=== PATIENT | female | born 1925 | race Caucasian/White ===

== ENCOUNTER 2017-07-08 22:19 | Observation (INO) | payer MEDICARE ==
[2017-07-08 23:30] LABS: Hemoglobin 13.4 g/dL (12.0-16.0); Mean Corpuscular HGB CONC 32.4 g/dL (32.0-36.0); Mean Corpuscular Hemoglobin 30.3 pg (27.0-31.0); Mean Corpuscular Volume 93.7 fl (81.0-99.0); Mean Platelet Volume 7.4 fL (7.4-10.4); Platelet Count 211 thou/uL (130-400); RBC Distribution Width 12.6 % (11.5-14.5); Red Blood Cell (RBC) Count 4.41 mill/uL (4.20-5.40); White Blood Cell (WBC) Count 4.7 thou/uL (4.8-10.8)
[2017-07-08 23:34] LABS: Band 18 % (5-11); Lymphocytes 21 % (21-51); MDiff Complete? YES; Monocytes 12 % (0-10); Neutrophil 48 % (42-75)
[2017-07-08 23:37] LABS: CKMB 2.8 ng/mL (0-6.6)
[2017-07-08 23:45] LABS: Troponin I Less than 0.010 ng/mL (< 0.028)
[2017-07-09 02:40] LABS: Troponin I Less than 0.010 ng/mL (< 0.028)
[2017-07-09 03:13] VITALS: BMI 29.9
[2017-07-09] MEDS ORDERED: Aspirin 325 MG TAB PO SCH (08:00)
[2017-07-09] MEDS ORDERED: Ondansetron ODT 4 MG TAB PO PRN (08:12)
[2017-07-09] MEDS ORDERED: Acetaminophen 325 MG TAB PO PRN (08:12)
[2017-07-09] MEDS ORDERED: HYDROcodone/Acetaminophen 5/325 mg Tablet PO PRN (08:12)
[2017-07-09] MEDS ORDERED: Enoxaparin Sodium 40 MG/0.4 ML SYRINGE SC SCH (08:30)
[2017-07-09] MEDS ORDERED: Amlodipine 5 MG TAB PO SCH (09:00)
[2017-07-09] MEDS ORDERED: clonazePAM 0.5 MG TAB PO SCH (09:00)
[2017-07-09] MEDS ORDERED: Fluticasone Propionate Nasal Spray 16 gm Bottle NASAL SCH (09:00)
[2017-07-09] MEDS ORDERED: Escitalopram Oxalate 10 mg Tablet PO SCH (09:00)
[2017-07-09] MEDS ORDERED: Hydrochlorothiazide 25 MG TAB PO SCH (09:00)
--- NOTE | 2017-07-09 11:13 | ULT ---
CAROTID ARTERIAL DOPPLER ULTRASOUND: DATE: 07/09/17 COMPARISON: None. HISTORY: Crescendo transient ischemic attack. TECHNIQUE: Multiplanar Prater scale sonographic imaging of the arterial structures of the neck obtained with color flow/spectral analysis. FINDINGS: There is antegrade blood flow and normal arterial waveforms documented within the right carotid syste m. Right vertebral artery could not be visualized. Left vertebral artery could not be visualized. Proximal left common carotid artery could not be visua lized. VESSEL PSV (cm/sec) EDV (cm/sec) Right CCA 113 13 Right ICA 77 12 Right ECA 189 9 Left CCA 75 10 Left ICA 71 9 Left ECA 228 6 IMPRESSION: 1. No hemodynamically significant stenosis on the basis of sonographic velocity criteria. However, p ortions of the left common carotid artery proximally could not be visualized. 2. Neither vertebral artery could be visualized and thus either vertebral artery may be occluded. 3. Given the limitations of this examination, cross-sectional imaging of the arterial structures of the neck via MRA with and without contrast advised. TERRELL T. POS: [facility]
--- NOTE | 2017-07-09 11:48 | MRI ---
BRAIN MRI WITHOUT CONTRAST: Date: 07/09/17 COMPARISON: None. HISTORY: Crescendo transient ischemic attacks. TECHNIQUE: Multiplanar, multisequence MR imaging of brain provided without contrast. FINDINGS: The diffusion-weighted imaging demonstrates no evidence for acute infarction. The axial gradient echo imaging demonstrates no evidence for intracranial hemorrhage. There is moderate diffuse cerebral volume loss. There are numerous foci of increased T2 and FLAIR sig nal within the periventricular, deep, and subcortical white matter, evidence of small vessel disease. Nonspecific bilateral mastoid effusions are noted, right more prominent than the left. Material of h igh density on FLAIR imaging within the right mastoid air cells suggest material of high proteinaceou s content, which could represent chronic/inspissated secretions, or an inflammatory process. There is near complete opacification of the maxillary sinus on the right. Arterial flow-void at axial level of skull base appears grossly unremarkable. IMPRESSION: Bilateral mastoid effusions. Cerebral volume loss and small vessel disease. No evidence of acute infa rction. POS: [facility]
--- NOTE | 2017-07-09 11:59 | MRI ---
MR ANGIOGRAM OF THE HEAD: Date: 07/09/17 COMPARISON: None. HISTORY: Crescendo transient ischemic attack. TECHNIQUE: Routine noncontrast enhanced [id number] MR angiography of the brain is obtained. FINDINGS: The distal vertebral arteries are patent, demonstrating antegrade blood flow. Right vertebral artery is dominant. There is mild stenosis of the basilar artery at its origin and there is mild stenosis in volving the distal aspect of the left vertebral artery. There is mild stenosis at the origin of the left [employer]. There is a severe area of stenosis involving th e distal aspect of the right P1 segment. There is mild distal irregularity of the left [employer]ER. There is an area of moderate stenosis involving the proximal aspect of the left cavernous ICA. Bilateral A1 segments are patent. Bilateral HILARY branches appear unremarkable. There is a focal area of severe stenosis involving the proximal right M1 segment measuring a length o f 5-6 mm. There is moderate/severe stenosis involving the proximal aspect of multiple M2 branches. The M1 segment on the left is severely diseased with numerous focal areas of high grade stenosis appr oaching occlusion. The MCA branches distal to this, including all M2 and M3 branches are severely attenuated. No saccula r aneurysm. IMPRESSION: There is severe atherosclerotic disease involving the M1 segments bilaterally, left greater than righ t. The MCA branches on the left are severely attenuated throughout the left cerebral hemisphere. Ther e is disease involving the posterior circulation as well, primarily bilateral posterior cerebral jacqui yane, right breast than left. POS: [facility]
--- NOTE | 2017-07-09 13:05 | HP ---
PRIMARY CARE PHYSICIAN: Dr. Jacob Gutierrez TIME OF SERVICE: 0800. CHIEF COMPLAINT: Slurred speech. HISTORY OF PRESENT ILLNESS: Ms. Sol is an 89-year-old female with history of hypothyroidism, GERD , valvular heart disease, hyperlipidemia, and hypertension who presents to an outside Emergency Depar tment initially in the evening of 07/08/2017 for an episode of slurred speech and some motor deficits . This latest episode occurred about 45 minutes prior to her arrival in the emergency department. She has had 3 other episodes in the last 10-14 days. By the time of transfer to our facility everything had returned to normal. Per the reports she has had some speech dysarthria slurring, but denied any motor deficits or sensory deficits. No double vision. No change in her hearing, vision, taste or smell otherwise. She denied any headache. She had no nausea, vomiting, diarrhea, constipation, fevers or chills, otherwise. PAST MEDICAL HISTORY: 1. Hypothyroidism. 2. GERD. 3. Valvular heart disease, unknown. 4. Hyperlipidemia. Primary cholesterol. 5. Hypertension. 6. Depression. 7. Anxiety. 8. Panic attacks. PAST SURGICAL HISTORY: 1. An ear surgery remotely. 2. Hysterectomy. 3. Esophageal stricture with dilation. HOME MEDICATIONS: 1. Losartan 50 mg p.o. q.a.m. 2. HCTZ 25 mg p.o. q.a.m. 3. Myrbetriq 25 mg daily. 4. Escitalopram 10 mg daily. 5. Pravastatin 20 mg p.o. at bedtime. 6. Lorazepam 0.5 mg p.o. at bedtime. 7. Aspirin 81 mg daily. 8. CoQ10 200 mg daily. 9. Levothyroxine 50 mcg daily. 10. Prilosec OTC 20 mg daily. 11. Flonase 2 puffs each nostril daily. 12. Ropinirole 2 mg p.o. at bedtime. ALLERGIES: CODEINE, ERYTHROMYCIN, KETAMINE, MACROLIDES, DEMEROL, MORPHINE and DARVON. FAMILY HISTORY: Negative for clotting or bleeding disorder, no immune dysfunction. SOCIAL HISTORY: Negative for habits x3. REVIEW OF SYSTEMS: A 10-point review of systems was performed and negative for all other systems exc ept stated as per HPI. PHYSICAL EXAMINATION: VITAL SIGNS: Temperature 98.2, pulse 74, blood pressure 144/65, respiratory rate 18, satting 94% on room air. GENERAL: She is awake. She is alert, she is oriented x3. She is an elderly white female, appears t o be in no acute distress. HEENT: Head is normocephalic, atraumatic. Pupils equal and reactive to light bilaterally, mucous me mbrane moist. She has no visible lesions or thrush. NECK: Supple. There is no lymphadenopathy, JVD or thyromegaly. She has normal carotid upstrokes. I do not appreciate bruits. LUNGS: Clear. CARDIOVASCULAR: She has normal S1 and S2. She has a holosystolic murmur best heard over the apex. She has no rubs. ABDOMEN: Soft, it is nontender, nondistended, no masses or organomegaly. EXTREMITIES: No cyanosis, no clubbing, no edema. She has 1+ at dorsalis pedis and posterior tibial pulses. SKIN: Otherwise, warm and well perfused without any other rash or lesions. NEUROLOGIC: Cranial nerves II-XII are grossly intact. She has a good conjugate gaze. Normal speech pattern. She has no focal deficits. She has 5/5 strength in all 4 of her extremities. MUSCULOSKELETAL: Normal to inspection, no joint inflammation and no effusions. LABORATORY DATA: Sodium 136, potassium 3.8 chloride 101, bicarbonate 22, BUN 21, creatinine 1.01, gl ucose 119, and magnesium 2.1. Calcium was 9.2. Liver functions normal. CBC showed a white count of 4.7, hemoglobin 13.4, hematocrit 41.3, platelets are normal. She has a 40% granulocytes, 18% bands, and 21% lymphocytes. Chest x-rays or CT scan of the brain negative for acute intracranial abnormalities. ASSESSMENT AND PLAN: 1. Dysarthria, seems to have resolved. This certainly could be a transient ischemic attack. We jan l get a MRI/MRA of the brain, bilateral carotid ultrasound and a 2D echocardiogram to better assess h er risk. We will check a fasting lipid profile with the blood we already have. She is on Zocor 10 a nd we will continue that for the time being and aspirin 325 daily. We will ask Neurology to evaluate . PT, OT and ST has been consulted, we will make more adjustments based on the findings. 2. Hypothyroidism. We will continue her levothyroxine. 3. Gastroesophageal reflux disease. She will be on Prevacid b.i.d. for GI prophylaxis. 4. Valvular heart disease. Echo has been ordered. 5. Hyperlipidemia as above. 6. Hypertension. Will continue home medications.
[2017-07-09 15:37] VITALS: BP 130/61; TEMP 98.1
[2017-07-09] MEDS ORDERED: Clopidogrel Bisulfate 75 MG TAB PO SCH (17:45)
[2017-07-09] MEDS ORDERED: Simvastatin 5 MG TAB PO SCH (21:00)
[2017-07-09] MEDS ORDERED: Atorvastatin Calcium 40 MG TAB PO SCH (21:00)
[2017-07-09] MEDS ORDERED: Atorvastatin Calcium 20 MG TAB PO SCH (21:00)
--- NOTE | 2017-07-09 22:41 | CON ---
NEUROLOGY CONSULTATION NOTE DATE OF CONSULTATION: 07/09/2017 CONSULTING PHYSICIAN: Hospitalist Service. IMPRESSION: Transient ischemic attack with transient expressive aphasia. PLAN: 1. Continue aspirin. 2. Add Plavix 75 mg per day. 3. Add Lipitor 20 mg per day. 4. Office followup. HISTORY OF PRESENT ILLNESS: Ms. Sol is an 89-year-old white female who came in with complaints of transient episodes of expressive aphasia. Should these were not associated with any paralysis, she had an MRI of the brain, which showed small vessel ischemic changes, chronic, but no acute changes. Her carotid Doppler did not show any stenosis. Her laboratory work was all unremarkable. Her vital signs have been stable and she has been afebrile. She has not had any attacks today. She was on asp irin prior to admission. PAST MEDICAL HISTORY: As per chart. ALLERGIES: None. SOCIAL HISTORY: No tobacco or alcohol use. FAMILY HISTORY: Noncontributory. REVIEW OF SYSTEMS: No complaint of headache, nausea, vomiting, vertigo, double vision, difficulty sw allowing, lateralized weakness or numbness. PHYSICAL EXAMINATION: GENERAL: She is a mildly frail appearing elderly lady in no distress. HEENT: Pupils are equal and reactive. Conjunctivae clear. Oropharynx clear. NECK: Supple. EXTREMITIES: No cyanosis. NEUROLOGIC: She is alert and appropriate. Her exam is nonfocal. She walks with the use of a cane. IMAGING DATA: EKG normal sinus rhythm. SUMMARY: More than likely she is having a primary thrombotic event that unfortunately cleared. She was not taking her statin as previously prescribed, but was compliant with her aspirin, would go with a combination of Plavix and Lipitor. I will be happy to follow up with her in the office.
[2017-07-10] MEDS ORDERED: Levothyroxine Sodium 50 MCG TAB PO SCH (06:00)
[2017-07-10] MEDS ORDERED: Clopidogrel Bisulfate 75 MG TAB PO SCH (09:00)
== END 2017-07-09 19:16 | disposition home or self-care (01) ==
LOC: ERS 22:19 → 2SE 07-09 00:47 → INTOOBSV 07-09 00:47
PROVIDERS: ADMIT Family Medicine; ATTEND Family Medicine
DX: I67.2 Cerebral atherosclerosis (principal); R47.81 Slurred speech; E03.9 Hypothyroidism, unspecified; K21.9 Gastro-esophageal reflux disease without esophagitis; I38 Endocarditis, valve unspecified; E78.5 Hyperlipidemia, unspecified; I10 Essential (primary) hypertension; E78.00 Pure hypercholesterolemia, unspecified; F32.9 Major depressive disorder, single episode, unspecified; F41.9 Anxiety disorder, unspecified; F41.0 Panic disorder [episodic paroxysmal anxiety]; Z79.82 Long term (current) use of aspirin; Z79.51 Long term (current) use of inhaled steroids; Z79.899 Other long term (current) drug therapy; Z88.5 Allergy status to narcotic agent; Z88.1 Allergy status to other antibiotic agents; Z88.8 Allergy status to other drugs, medicaments and biological substances; Z90.710 Acquired absence of both cervix and uterus; Z98.890 Other specified postprocedural states
CPT/HCPCS: 70544; 70551; 80061; 82553; 83605; 83735; 84484 ×3; 85025; 93306; 93880; 96372; 97116; 97139; 97530; 99285; G0378; G8978; G8979; G8980; 36415; G9159-GN-CJ; G9160-GN-CJ; J1650